=== PATIENT | female | born 1975 | race Two or more races ===

== ENCOUNTER 2021-02-03 19:39 | Emergency (ER) | payer OTHER | END 2021-02-03 21:48 | disposition left against medical advice (07) | LOC: ER 19:39 | DX: S69.91XA Unspecified injury of right wrist, hand and finger(s), initial encounter (principal); Z53.21 Procedure and treatment not carried out due to patient leaving prior to being seen by health care provider; V89.2XXA Person injured in unspecified motor-vehicle accident, traffic, initial encounter; Y93.89 Activity, other specified; Y92.89 Other specified places as the place of occurrence of the external cause; Y99.8 Other external cause status ==